=== PATIENT | male | born 1990 | race African-American/Black ===

== ENCOUNTER 2017-07-12 11:45 | Inpatient (IN) | payer MEDICAID, OTHER ==
[~2017-07-12] VITALS: Ht 172.7 cm; Wt 59.4 kg
[2017-07-12] MEDS ORDERED: PROZ10 PO (11:57)
[2017-07-12 12:28] LABS: BASOPHILS % (AUTO) 0.5 % (0.0-2.0); EOSINOPHILS % (AUTO) 1.3 % (1.0-6.0); HEMATOCRIT 42.9 % (41-53); HEMOGLOBIN 14.9 g/dL (13.5-17.5); LYMPHOCYTES # (AUTO) 2.4 K/uL (1.0-4.8); LYMPHOCYTES % (AUTO) 46.8 % (22.0-44.0); MEAN CORPUSCULAR HEMOGLOBIN 30.9 pg (26.0-34.0); MEAN CORPUSCULAR HGB CONC 34.7 G/dL (31.0-37.0); MEAN CORPUSCULAR VOLUME 89 fL (80-100); MONOCYTES # (AUTO) 0.2 K/uL (0.1-1.0); MONOCYTES % (AUTO) 4.1 % (2.0-9.0); NEUTROPHILS # (AUTO) 2.5 K/uL (1.8-7.7); NEUTROPHILS % (AUTO) 47.3 % (40.0-70.0); PLATELET COUNT (AUTO) 226 K/uL (150-450); RED BLOOD CELL COUNT(AUTO) 4.81 MIL/uL (4.50-5.90); RED CELL DISTRIBUTION WIDTH 13.4 % (11.5-14.5); WHITE BLOOD COUNT (AUTO) 5.2 K/uL (4.5-11.0)
[2017-07-12 12:40] LABS: SALICYLATE < 2.8 mg/dL (2.8-20.0)
[2017-07-12 12:41] LABS: ANION GAP 11 mmol/L (8-16); CALCIUM, TOTAL 8.5 mg/dL (8.8-10.5); CARBON DIOXIDE 27 mmol/L (22-29); CHLORIDE 107 mmol/L (98-107); CREATININE 0.82 mg/dL (0.60-1.30); GLOMERULAR FILTR. RATE CALC > 60 mL/min (>60); SODIUM SERUM 145 mmol/L (136-145); UREA NITROGEN, BLOOD 11 mg/dL (7-18)
[2017-07-12 12:52] LABS: ALANINE AMINOTRANSFERASE 26 U/L (12-78); ALBUMIN 4.1 g/dL (3.4-5.0); ASPARTATE AMINOTRANSFERASE 24 U/L (15-37); BILIRUBIN,TOTAL 0.2 mg/dL (0.1-1.0); TOTAL PROTEIN, SERUM 7.7 g/dL (6.4-8.2)
[2017-07-12] MEDS ORDERED: SODIUM CHLORIDE 0.9% 1,000 ML IV ONE (13:15)
[2017-07-12 13:33] LABS: ACETAMINOPHEN < 2 mcg/mL (10-30)
[2017-07-12] MEDS ORDERED: PROMETHAZINE HCL 25 MG TABLET PO PRN (15:00)
[2017-07-12] MEDS ORDERED: MAG HYDROX/AL HYDROX/SIMETH ES 30 ML SUSPENSION UDCUP PO PRN (15:00)
[2017-07-12] MEDS ORDERED: GuaiFENesin/D-METHORPHAN [SUGAR-FREE] 200-20MG/10 ML SYRUP UDCUP PO PRN (15:00)
[2017-07-12] MEDS ORDERED: DIAZEPAM 10 MG TABLET PO PRN (15:00)
[2017-07-12] MEDS ORDERED: LOPERAMIDE HCL 2 MG CAPSULE PO PRN (15:00)
[2017-07-12] MEDS ORDERED: TUBERCULIN, PURIFIED PROTEIN DERIVATIVE 5 TU/0.1 ML SYG ID ONE (15:00)
[2017-07-12] MEDS ORDERED: OLANZapine 5 MG RAPDIS TABLET PO PRN (15:00)
[2017-07-12] MEDS ORDERED: MAGNESIUM HYDROXIDE SUSPENSION 30 ML UDCUP PO PRN (15:00)
[2017-07-12] MEDS ORDERED: ZOLPIDEM TARTRATE 10 MG TABLET PO PRN (15:00)
[2017-07-12] MEDS ORDERED: CYANOCOBALAMIN 1,000 MCG/ML VIAL IM ONE (15:00)
[2017-07-12] MEDS ORDERED: HydrOXYzine PAMOATE 50 MG CAPSULE PO PRN (15:00)
[2017-07-12] MEDS ORDERED: ACETAMINOPHEN 325 MG TABLET PO PRN (15:00)
[2017-07-12 20:17] VITALS: BP 114/90
[2017-07-12] MEDS: MIRTAZAPINE 15 MG TABLET PO SCH (20:27)
[2017-07-12] MEDS: THIAMINE HCL 100 MG TABLET PO SCH (20:27)
[2017-07-12 20:28] VITALS: BP 114/90
[2017-07-12 21:12] VITALS: BP 108/53
[2017-07-12 22:07] VITALS: BP 111/68
[2017-07-12 23:06] VITALS: BP 120/59
[2017-07-13] VITALS (11 sets, daily range): BP systolic 92–130; BP diastolic 41–74
[2017-07-13] MEDS ORDERED: DIAZEPAM 10 MG TABLET PO PRN (07:00)
[2017-07-13 07:13] LABS: BASOPHILS % (AUTO) 0.4 % (0.0-2.0); EOSINOPHILS % (AUTO) 2.8 % (1.0-6.0); HEMATOCRIT 41.5 % (41-53); HEMOGLOBIN 14.3 g/dL (13.5-17.5); LYMPHOCYTES # (AUTO) 2.8 K/uL (1.0-4.8); LYMPHOCYTES % (AUTO) 45.6 % (22.0-44.0); MEAN CORPUSCULAR HGB CONC 34.4 G/dL (31.0-37.0); MEAN CORPUSCULAR VOLUME 90 fL (80-100); MONOCYTES # (AUTO) 0.4 K/uL (0.1-1.0); MONOCYTES % (AUTO) 6.9 % (2.0-9.0); NEUTROPHILS # (AUTO) 2.8 K/uL (1.8-7.7); NEUTROPHILS % (AUTO) 44.3 % (40.0-70.0); PLATELET COUNT (AUTO) 200 K/uL (150-450); RED BLOOD CELL COUNT(AUTO) 4.61 MIL/uL (4.50-5.90); RED CELL DISTRIBUTION WIDTH 13.4 % (11.5-14.5); WHITE BLOOD COUNT (AUTO) 6.2 K/uL (4.5-11.0)
[2017-07-13 07:19] LABS: HEMOGLOBIN A1C 5.7 % (4.5-6.2)
[2017-07-13 07:48] LABS: ALANINE AMINOTRANSFERASE 24 U/L (12-78); ALBUMIN 3.6 g/dL (3.4-5.0); ANION GAP 6 mmol/L (8-16); ASPARTATE AMINOTRANSFERASE 22 U/L (15-37); BILIRUBIN,TOTAL 0.4 mg/dL (0.1-1.0); CALCIUM, TOTAL 8.6 mg/dL (8.8-10.5); CARBON DIOXIDE 29 mmol/L (22-29); CHLORIDE 105 mmol/L (98-107); CHOL/HDL RATIO 2.6 (4.2-7.3); CREATININE 0.89 mg/dL (0.60-1.30); GLOMERULAR FILTR. RATE CALC > 60 mL/min (>60); POTASSIUM 3.8 mmol/L (3.5-5.1); SODIUM SERUM 140 mmol/L (136-145); THYROID STIMULATING HORMONE 0.47 uIU/mL (0.36-3.74); TOTAL PROTEIN, SERUM 6.9 g/dL (6.4-8.2); UREA NITROGEN, BLOOD 14 mg/dL (7-18)
[2017-07-13] MEDS: THIAMINE HCL 100 MG TABLET PO SCH ×2 (08:24→16:46)
[2017-07-13] MEDS: MULTIVITAMINS WITH MINERALS, THERAPEUTIC TABLET PO SCH (08:24)
[2017-07-13] MEDS: NALTREXONE HCL 50 MG TABLET PO SCH (08:24)
[2017-07-13] MEDS: FOLIC ACID 1 MG TABLET PO SCH (08:24)
[2017-07-13] MEDS: DIAZEPAM 10 MG TABLET PO SCH ×4 (08:24→21:00)
[2017-07-13] MEDS ORDERED: PENICILLIN G BENZATHINE LA 2,400,000 UNITS/4 ML SYRINGE IM ONE (19:00)
[2017-07-13] MEDS: MIRTAZAPINE 15 MG TABLET PO SCH (21:00)
[2017-07-14] VITALS (7 sets, daily range): BP systolic 107–125; BP diastolic 58–92
[2017-07-14] MEDS: FOLIC ACID 1 MG TABLET PO SCH (09:59)
[2017-07-14] MEDS: THIAMINE HCL 100 MG TABLET PO SCH ×2 (09:59→16:12)
[2017-07-14] MEDS: DIAZEPAM 10 MG TABLET PO SCH ×4 (09:59→20:24)
[2017-07-14] MEDS: MULTIVITAMINS WITH MINERALS, THERAPEUTIC TABLET PO SCH (09:59)
[2017-07-14] MEDS: NALTREXONE HCL 50 MG TABLET PO SCH (09:59)
[2017-07-14] MEDS: MIRTAZAPINE 15 MG TABLET PO SCH (20:24)
[2017-07-14 20:58] LABS: TREPONEMA PALLIDUM AB -TPPA Positive (Negative)
[2017-07-15 06:55] VITALS: BP 106/74
[2017-07-15] MEDS ORDERED: DIAZEPAM 5 MG TABLET PO PRN (07:00)
[2017-07-15 07:12] VITALS: BP 106/74
[2017-07-15 08:20] VITALS: BP 105/54
[2017-07-15 08:30] VITALS: BP 105/54
[2017-07-15] MEDS: DIAZEPAM 5 MG TABLET PO SCH ×4 (09:00→20:20)
[2017-07-15] MEDS: NALTREXONE HCL 50 MG TABLET PO SCH (09:02)
[2017-07-15] MEDS: FOLIC ACID 1 MG TABLET PO SCH (09:02)
[2017-07-15] MEDS: MULTIVITAMINS WITH MINERALS, THERAPEUTIC TABLET PO SCH (09:02)
[2017-07-15] MEDS: THIAMINE HCL 100 MG TABLET PO SCH ×2 (09:02→17:35)
[2017-07-15] MEDS ORDERED: LOPERAMIDE HCL 2 MG CAPSULE PO PRN (15:00)
[2017-07-15 18:25] VITALS: BP 111/64
[2017-07-15 18:26] VITALS: BP 111/64
[2017-07-15] MEDS: MIRTAZAPINE 15 MG TABLET PO SCH (20:19)
[2017-07-16 06:48] VITALS: BP 115/70
[2017-07-16 06:49] VITALS: BP 115/70
[2017-07-16] MEDS ORDERED: DIAZEPAM 5 MG TABLET PO PRN (07:00)
[2017-07-16 08:15] VITALS: BP 95/62
[2017-07-16] MEDS: THIAMINE HCL 100 MG TABLET PO SCH ×2 (08:35→15:59)
[2017-07-16] MEDS: FOLIC ACID 1 MG TABLET PO SCH (08:35)
[2017-07-16] MEDS: NALTREXONE HCL 50 MG TABLET PO SCH (08:35)
[2017-07-16] MEDS: MULTIVITAMINS WITH MINERALS, THERAPEUTIC TABLET PO SCH (08:35)
[2017-07-16 19:34] VITALS: BP 117/69
[2017-07-16 19:35] VITALS: BP 117/69
[2017-07-16] MEDS: MIRTAZAPINE 15 MG TABLET PO SCH (20:11)
[2017-07-17 06:48] VITALS: BP 96/62
[2017-07-17] MEDS: FOLIC ACID 1 MG TABLET PO SCH (09:07)
[2017-07-17] MEDS: MULTIVITAMINS WITH MINERALS, THERAPEUTIC TABLET PO SCH (09:07)
[2017-07-17] MEDS: THIAMINE HCL 100 MG TABLET PO SCH ×2 (09:07→16:16)
[2017-07-17] MEDS: NALTREXONE HCL 50 MG TABLET PO SCH (09:08)
[2017-07-17 09:30] VITALS: BP 109/52
[2017-07-17 16:25] VITALS: BP 130/85
[2017-07-17] MEDS: MIRTAZAPINE 15 MG TABLET PO SCH (20:38)
[2017-07-18 08:14] VITALS: BP 105/74
[2017-07-18] MEDS: THIAMINE HCL 100 MG TABLET PO SCH ×2 (08:55→16:46)
[2017-07-18] MEDS: NALTREXONE HCL 50 MG TABLET PO SCH (08:55)
[2017-07-18] MEDS: MULTIVITAMINS WITH MINERALS, THERAPEUTIC TABLET PO SCH (08:55)
[2017-07-18] MEDS: FOLIC ACID 1 MG TABLET PO SCH (08:56)
[2017-07-18 16:56] VITALS: BP 126/77
[2017-07-18] MEDS ORDERED: MIRTAZAPINE 15 MG TABLET PO SCH (21:00)
[2017-07-18] MEDS ORDERED: OLANZapine 5 MG TABLET PO SCH (21:00)
[2017-07-19 09:30] VITALS: BP 113/60
[2017-07-19] MEDS: MULTIVITAMINS WITH MINERALS, THERAPEUTIC TABLET PO SCH (09:39)
[2017-07-19] MEDS: NALTREXONE HCL 50 MG TABLET PO SCH (09:39)
[2017-07-19] MEDS: FOLIC ACID 1 MG TABLET PO SCH (09:39)
[2017-07-19] MEDS: THIAMINE HCL 100 MG TABLET PO SCH ×2 (09:39→16:52)
[2017-07-19] MEDS ORDERED: NALT50TA PO (14:32)
[2017-07-19] MEDS ORDERED: MIRT30 PO (14:32)
[2017-07-19] MEDS ORDERED: OLAN10TA20 PO (14:32)
[2017-07-19] MEDS ORDERED: OLANZapine 10 MG TABLET PO SCH (21:00)
[2017-07-19] MEDS ORDERED: MIRTAZAPINE 30 MG TABLET PO SCH (21:00)
== END 2017-07-19 17:20 | disposition home or self-care (01) | DRG 750 ==
LOC: EMS 11:46 → 3EC 19:38 → 3EI 07-18 17:19
PROVIDERS: ADMIT Psychiatry & Neurology Psychiatry; ATTEND Psychiatry & Neurology Psychiatry
DX: F25.0 Schizoaffective disorder, bipolar type (principal); R45.851 Suicidal ideations; Z59.0 Homelessness; F41.9 Anxiety disorder, unspecified; F32.9 Major depressive disorder, single episode, unspecified; F17.210 Nicotine dependence, cigarettes, uncomplicated; F14.90 Cocaine use, unspecified, uncomplicated; Z91.030 Bee allergy status; Z79.899 Other long term (current) drug therapy; Z91.5 Personal history of self-harm; Z65.3 Problems related to other legal circumstances
CPT/HCPCS: 83036; 84439; 84443; 86592; 86593; 86780; 96360; 96372; 99285; G0480; G0481; J0561; J3420; J7030

== ENCOUNTER 2018-04-07 16:45 | Emergency (ER) | payer MEDICAID, OTHER ==
[~2018-04-07] VITALS: Ht 170.2 cm; Wt 59.1 kg
[~2018-04-07 16:45] MED LIST: MIRT30 PO; NALT50TA PO; OLAN10TA20 PO
[2018-04-07 17:57] LABS: BASOPHILS % (AUTO) 0.7 % (0.0-2.0); EOSINOPHILS % (AUTO) 0.5 % (1.0-6.0); HEMATOCRIT 45.1 % (41-53); HEMOGLOBIN 15.2 g/dL (13.5-17.5); LYMPHOCYTES # (AUTO) 1.7 K/uL (1.0-4.8); LYMPHOCYTES % (AUTO) 18.5 % (22.0-44.0); MEAN CORPUSCULAR HEMOGLOBIN 29.9 pg (26.0-34.0); MEAN CORPUSCULAR HGB CONC 33.6 G/dL (31.0-37.0); MEAN CORPUSCULAR VOLUME 89 fL (80-100); MONOCYTES # (AUTO) 0.4 K/uL (0.1-1.0); MONOCYTES % (AUTO) 4.7 % (2.0-9.0); NEUTROPHILS % (AUTO) 75.6 % (40.0-70.0); PLATELET COUNT (AUTO) 236 K/uL (150-450); RED BLOOD CELL COUNT(AUTO) 5.08 MIL/uL (4.50-5.90); RED CELL DISTRIBUTION WIDTH 12.9 % (11.5-14.5)
[2018-04-07 18:09] LABS: ANION GAP 12 mmol/L (8-16); CALCIUM, TOTAL 8.7 mg/dL (8.8-10.5); CARBON DIOXIDE 25 mmol/L (22-29); CHLORIDE 101 mmol/L (98-107); CREATININE 0.76 mg/dL (0.60-1.30); GLOMERULAR FILTR. RATE CALC > 60 mL/min (>60); GLUCOSE,RANDOM 69 mg/dL (70-110); POTASSIUM 3.5 mmol/L (3.5-5.1); SODIUM SERUM 138 mmol/L (136-145); UREA NITROGEN, BLOOD 12 mg/dL (7-18)
[2018-04-07 18:15] LABS: ALANINE AMINOTRANSFERASE 50 U/L (12-78); ALBUMIN 4.6 g/dL (3.4-5.0); ALKALINE PHOSPHATASE 83 U/L (46-116); ASPARTATE AMINOTRANSFERASE 62 U/L (15-37); BILIRUBIN,TOTAL 0.6 mg/dL (0.1-1.0)
[2018-04-07 18:17] LABS: ACETAMINOPHEN < 2 mcg/mL (10-30)
[2018-04-07 18:58] LABS: AMPHET/METH SCREEN,URINE NEGATIVE (NEGATIVE); BARBITURATE SCREEN, URINE NEGATIVE (NEGATIVE); BENZODIAZEPINES SCREEN,URINE NEGATIVE (NEGATIVE); CANNABINOID SCREEN,URINE POSITIVE (NEGATIVE); COCAINE SCREEN,URINE NEGATIVE (NEGATIVE); METHADONE SCREEN, URINE NEGATIVE (NEGATIVE); OPIATE SCREEN,URINE NEGATIVE (NEGATIVE)
[2018-04-07 18:59] LABS: PHENCYCLIDINE SCREEN,URINE NEGATIVE (NEGATIVE)
[2018-04-07 22:38] VITALS: BP 112/72
== END 2018-04-07 22:40 | disposition home or self-care (01) ==
LOC: EMS 16:47
DX: F10.129 Alcohol abuse with intoxication, unspecified (principal); F14.90 Cocaine use, unspecified, uncomplicated; F12.90 Cannabis use, unspecified, uncomplicated; F17.210 Nicotine dependence, cigarettes, uncomplicated; F31.9 Bipolar disorder, unspecified; Z91.030 Bee allergy status; Z79.899 Other long term (current) drug therapy
CPT/HCPCS: 36415; 80053; 80307; 85025; 99284; G0480 ×2; G0481

== ENCOUNTER 2018-05-10 10:32 | Inpatient (IN) | payer MEDICAID, OTHER ==
[~2018-05-10] VITALS: Ht 170.2 cm; Wt 54.1 kg
[2018-05-10 11:15] LABS: BASOPHILS % (AUTO) 0.4 % (0.0-2.0); EOSINOPHILS % (AUTO) 0.3 % (1.0-6.0); HEMATOCRIT 43.9 % (41-53); HEMOGLOBIN 14.8 g/dL (13.5-17.5); LYMPHOCYTES # (AUTO) 1.4 K/uL (1.0-4.8); LYMPHOCYTES % (AUTO) 13.6 % (22.0-44.0); MEAN CORPUSCULAR HEMOGLOBIN 30.9 pg (26.0-34.0); MEAN CORPUSCULAR HGB CONC 33.8 G/dL (31.0-37.0); MEAN CORPUSCULAR VOLUME 92 fL (80-100); MONOCYTES # (AUTO) 0.4 K/uL (0.1-1.0); MONOCYTES % (AUTO) 4.2 % (2.0-9.0); NEUTROPHILS # (AUTO) 8.6 K/uL (1.8-7.7); NEUTROPHILS % (AUTO) 81.5 % (40.0-70.0); PLATELET COUNT (AUTO) 252 K/uL (150-450); RED CELL DISTRIBUTION WIDTH 14.5 % (11.5-14.5)
[2018-05-10 11:26] LABS: ANION GAP 14 mmol/L (8-16); CALCIUM, TOTAL 8.4 mg/dL (8.8-10.5); CARBON DIOXIDE 21 mmol/L (22-29); CHLORIDE 104 mmol/L (98-107); CREATININE 0.98 mg/dL (0.60-1.30); GLOMERULAR FILTR. RATE CALC > 60 mL/min (>60); GLUCOSE,RANDOM 147 mg/dL (70-110); POTASSIUM 3.6 mmol/L (3.5-5.1); SODIUM SERUM 139 mmol/L (136-145); UREA NITROGEN, BLOOD 15 mg/dL (7-18)
[2018-05-10 11:33] LABS: ALANINE AMINOTRANSFERASE 51 U/L (12-78); ALBUMIN 3.7 g/dL (3.4-5.0); ALKALINE PHOSPHATASE 99 U/L (46-116); ASPARTATE AMINOTRANSFERASE 72 U/L (15-37); BILIRUBIN,TOTAL 0.2 mg/dL (0.1-1.0); TOTAL PROTEIN, SERUM 7.8 g/dL (6.4-8.2)
[2018-05-10] MEDS ORDERED: ZOLPIDEM TARTRATE 10 MG TABLET PO PRN (13:30)
[2018-05-10] MEDS ORDERED: HALOPERIDOL 5 MG TABLET PO PRN (13:30)
[2018-05-10] MEDS ORDERED: LORazepam 2 MG TABLET PO PRN ×2 (13:30→17:30)
[2018-05-10 17:45] VITALS: BP 110/64
[2018-05-10 18:00] VITALS: BP 115/68
[2018-05-10 19:00] VITALS: BP 120/70
[2018-05-10 20:00] VITALS: BP 119/55
[2018-05-10] MEDS: MIRTAZAPINE 15 MG TABLET PO SCH (20:32)
[2018-05-10 21:00] VITALS: BP 118/58
[2018-05-11] VITALS (8 sets, daily range): BP systolic 108–122; BP diastolic 54–69
[2018-05-11] MEDS ORDERED: LORazepam 2 MG TABLET PO PRN (07:00)
[2018-05-11 07:20] LABS: CHOL/HDL RATIO 1.9 (4.2-7.3)
[2018-05-11] MEDS: GABAPENTIN 100 MG CAPSULE PO SCH ×2 (10:00→16:21)
[2018-05-11] MEDS: LORazepam 2 MG TABLET PO SCH ×4 (10:01→21:11)
[2018-05-11] MEDS: MIRTAZAPINE 15 MG TABLET PO SCH (20:14)
[2018-05-12 01:00] VITALS: BP 101/66
[2018-05-12 08:12] VITALS: BP 119/73
[2018-05-12 08:13] VITALS: BP 119/73
[2018-05-12] MEDS: GABAPENTIN 100 MG CAPSULE PO SCH ×2 (08:49→16:44)
[2018-05-12] MEDS: LORazepam 2 MG TABLET PO SCH ×4 (08:49→20:44)
[2018-05-12 12:53] VITALS: BP 111/67
[2018-05-12 18:00] VITALS: BP 118/68
[2018-05-12 20:26] VITALS: BP 118/68
[2018-05-12] MEDS: MIRTAZAPINE 15 MG TABLET PO SCH (20:44)
[2018-05-13 00:37] VITALS: BP 111/66
[2018-05-13] MEDS ORDERED: LORazepam 1 MG TABLET PO PRN (07:00)
[2018-05-13 08:05] VITALS: BP 108/53
[2018-05-13] MEDS: LORazepam 1 MG TABLET PO SCH ×4 (09:27→20:37)
[2018-05-13] MEDS: GABAPENTIN 100 MG CAPSULE PO SCH ×2 (09:27→17:07)
[2018-05-13] MEDS: MIRTAZAPINE 15 MG TABLET PO SCH (20:37)
[2018-05-13 22:28] VITALS: BP 116/71
[2018-05-13 22:29] VITALS: BP 116/71
[2018-05-14 06:47] VITALS: BP 101/65
[2018-05-14] MEDS ORDERED: LORazepam 1 MG TABLET PO PRN (07:00)
[2018-05-14 09:27] VITALS: BP 100/57
[2018-05-14] MEDS: GABAPENTIN 100 MG CAPSULE PO SCH (10:04)
[2018-05-14] MEDS ORDERED: GABA-529 PO (10:23)
[2018-05-14] MEDS ORDERED: MIRT15 PO (10:24)
== END 2018-05-14 15:03 | disposition home or self-care (01) | DRG 751 ==
LOC: EMS 10:33 → 3EI 16:20
PROVIDERS: ADMIT Psychiatry & Neurology Psychiatry; ATTEND Psychiatry & Neurology Psychiatry
DX: F33.2 Major depressive disorder, recurrent severe without psychotic features (principal); R45.851 Suicidal ideations; Z91.19 Patient's noncompliance with other medical treatment and regimen; F10.10 Alcohol abuse, uncomplicated; F15.90 Other stimulant use, unspecified, uncomplicated; F17.210 Nicotine dependence, cigarettes, uncomplicated; F41.9 Anxiety disorder, unspecified; G47.00 Insomnia, unspecified; H54.7 Unspecified visual loss; F12.90 Cannabis use, unspecified, uncomplicated; R74.0 Nonspecific elevation of levels of transaminase and lactic acid dehydrogenase [LDH]; R73.9 Hyperglycemia, unspecified; Z79.899 Other long term (current) drug therapy; Z79.4 Long term (current) use of insulin; Z91.5 Personal history of self-harm
CPT/HCPCS: 99285; 99406; G0480

== ENCOUNTER 2022-05-22 08:03 | Emergency (ER) | payer MEDICAID ==
[~2022-05-22] VITALS: Ht 170.2 cm; Wt 54.1 kg
[~2022-05-22 08:03] MED LIST changes: +GABA-1216 PO; +MIRT-89 PO; -MIRT30 PO; -NALT50TA PO; -OLAN10TA20 PO
[2022-05-22 08:31] LABS: BASOPHILS % (AUTO) 0.6 % (0.0-2.0); EOSINOPHILS % (AUTO) 1.7 % (1.0-6.0); HEMATOCRIT 40.3 % (41-53); HEMOGLOBIN 13.3 g/dL (13.5-17.5); LYMPHOCYTES # (AUTO) 2.2 K/uL (1.0-4.8); MEAN CORPUSCULAR HGB CONC 33.1 G/dL (31.0-37.0); MEAN CORPUSCULAR VOLUME 87 fL (80-100); MONOCYTES # (AUTO) 0.5 K/uL (0.1-1.0); MONOCYTES % (AUTO) 6.3 % (2.0-9.0); NEUTROPHILS % (AUTO) 63.4 % (40.0-70.0); PLATELET COUNT (AUTO) 296 K/uL (150-450); RED CELL DISTRIBUTION WIDTH 13.4 % (11.5-14.5)
[2022-05-22 08:55] LABS: ANION GAP 7 mmol/L (8-16); CALCIUM, TOTAL 9.7 mg/dL (8.8-10.5); CARBON DIOXIDE 29 mmol/L (22-29); CHLORIDE 103 mmol/L (98-107); CREATININE 0.98 mg/dL (0.60-1.30); GLUCOSE,RANDOM 81 mg/dL (70-110); POTASSIUM 3.8 mmol/L (3.5-5.1); SODIUM SERUM 139 mmol/L (136-145); UREA NITROGEN, BLOOD 20 mg/dL (7-18)
[2022-05-22 08:57] LABS: GLOMERULAR FILTR. RATE CALC > 60 mL/min (>60)
[2022-05-22 09:00] LABS: ALANINE AMINOTRANSFERASE 24 U/L (12-78); ALBUMIN 4.3 g/dL (3.4-5.0); ALKALINE PHOSPHATASE 73 U/L (46-116); ASPARTATE AMINOTRANSFERASE 28 U/L (15-37); BILIRUBIN,TOTAL 0.5 mg/dL (0.1-1.0); TOTAL PROTEIN, SERUM 8.5 g/dL (6.4-8.2)
[2022-05-22 12:11] LABS: COVID AG,FIA SOURCE NASOPHARYNGEAL
[2022-05-22 18:33] VITALS: BP 111/68
== END 2022-05-22 21:42 | disposition home or self-care (01) ==
LOC: EMS 08:06
DX: F32.9 Major depressive disorder, single episode, unspecified (principal); F17.210 Nicotine dependence, cigarettes, uncomplicated; R45.851 Suicidal ideations; F14.90 Cocaine use, unspecified, uncomplicated; F12.90 Cannabis use, unspecified, uncomplicated; F15.90 Other stimulant use, unspecified, uncomplicated; Z72.89 Other problems related to lifestyle; Z91.030 Bee allergy status; Z20.822 Contact with and (suspected) exposure to COVID-19
CPT/HCPCS: 99285; 87426; 80053; 85025; 36415; G0480; 99283

== ENCOUNTER 2022-08-18 21:39 | Inpatient (IN) | payer MEDICAID ==
[~2022-08-18] VITALS: Ht 175.3 cm; Wt 58.9 kg
[2022-08-18 22:43] LABS: BASOPHILS % (AUTO) 0.6 % (0.0-2.0); EOSINOPHILS % (AUTO) 2.8 % (1.0-6.0); HEMATOCRIT 41.4 % (41-53); HEMOGLOBIN 13.5 g/dL (13.5-17.5); LYMPHOCYTES # (AUTO) 3.3 K/uL (1.0-4.8); LYMPHOCYTES % (AUTO) 40.6 % (22.0-44.0); MEAN CORPUSCULAR HEMOGLOBIN 29.3 pg (26.0-34.0); MEAN CORPUSCULAR HGB CONC 32.6 G/dL (31.0-37.0); MEAN CORPUSCULAR VOLUME 90 fL (80-100); MONOCYTES # (AUTO) 0.4 K/uL (0.1-1.0); NEUTROPHILS # (AUTO) 4.1 K/uL (1.8-7.7); PLATELET COUNT (AUTO) 381 K/uL (150-450); RED BLOOD CELL COUNT(AUTO) 4.61 MIL/uL (4.50-5.90); RED CELL DISTRIBUTION WIDTH 12.9 % (11.5-14.5)
[2022-08-18 22:53] LABS: ANION GAP 6 mmol/L (8-16); CALCIUM, TOTAL 9.7 mg/dL (8.8-10.5); CARBON DIOXIDE 31 mmol/L (22-29); CHLORIDE 99 mmol/L (98-107); CREATININE 0.86 mg/dL (0.60-1.30); GLUCOSE,RANDOM 95 mg/dL (70-110); POTASSIUM 3.8 mmol/L (3.5-5.1); SODIUM SERUM 136 mmol/L (136-145); UREA NITROGEN, BLOOD 14 mg/dL (7-18)
[2022-08-18 22:56] LABS: GLOMERULAR FILTR. RATE CALC > 60 mL/min (>60)
[2022-08-18 23:11] LABS: ALANINE AMINOTRANSFERASE 26 U/L (12-78); ALBUMIN 4.3 g/dL (3.4-5.0); ALKALINE PHOSPHATASE 78 U/L (46-116); ASPARTATE AMINOTRANSFERASE 27 U/L (15-37); BILIRUBIN,TOTAL 0.2 mg/dL (0.1-1.0); LIPASE 157 U/L (73-393); TOTAL PROTEIN, SERUM 8.3 g/dL (6.4-8.2)
[2022-08-18] MEDS ORDERED: LORazepam 2 MG TABLET PO ONE (23:15)
[2022-08-18] MEDS ORDERED: DiphenhydrAMINE HCL 25 MG CAPSULE PO ONE (23:15)
[2022-08-18] MEDS ORDERED: ZOLPIDEM TARTRATE 10 MG TABLET PO PRN (23:30)
[2022-08-18] MEDS ORDERED: LORazepam 2 MG TABLET PO PRN (23:30)
[2022-08-18] MEDS ORDERED: HALOPERIDOL 5 MG TABLET PO PRN (23:30)
[2022-08-19 00:50] LABS: COVID AG,FIA SOURCE NASAL SWAB
[2022-08-19] MEDS ORDERED: MAG HYDROX/AL HYDROX/SIMETH ES 30 ML SUSPENSION UDCUP PO PRN (09:30)
[2022-08-19] MEDS ORDERED: ACETAMINOPHEN 325 MG TABLET PO PRN (09:30)
[2022-08-19] MEDS ORDERED: PETROLATUM,WHITE 28 GM JELLY TP PRN (09:30)
[2022-08-19] MEDS ORDERED: LOPERAMIDE HCL 2 MG CAPSULE PO PRN (09:30)
[2022-08-19] MEDS ORDERED: OMEPRAZOLE 20 MG CAPSULE PO PRN (09:30)
[2022-08-19] MEDS ORDERED: ALBUTEROL SULFATE HFA 90 MCG/PUFF 8 GM INHALER IH PRN (09:30)
[2022-08-19] MEDS ORDERED: MAGNESIUM HYDROXIDE SUSPENSION 30 ML UDCUP PO PRN (09:30)
[2022-08-19] MEDS ORDERED: CloNIDine HCL 0.1 MG TABLET PO PRN (09:30)
[2022-08-19] MEDS ORDERED: ONDANSETRON HCL 4 MG TABLET PO PRN (09:30)
[2022-08-19] MEDS ORDERED: DOCUSATE SODIUM 100 MG CAPSULE PO PRN (09:30)
[2022-08-19] MEDS ORDERED: IBUPROFEN 600 MG TABLET PO PRN (09:30)
[2022-08-19] MEDS ORDERED: BACITRACIN 28 GM OINTMENT TP PRN (09:30)
[2022-08-19] MEDS ORDERED: BENZOCAINE/MENTHOL LOZENGE PO PRN (09:30)
[2022-08-19 10:49] LABS: APPEARANCE,URINE CLEAR (CLEAR); BILIRUBIN,URINE NEGATIVE (NEGATIVE); GLUCOSE, URINE (UA) NEGATIVE (NEGATIVE); KETONES,URINE NEGATIVE (NEGATIVE); LEUKOCYTE ESTERASE ,URINE NEGATIVE (NEGATIVE); NITRATE,URINE NEGATIVE (NEGATIVE); OCCULT BLOOD,URINE NEGATIVE (NEGATIVE); PROTEIN,URINE NEGATIVE (NEGATIVE); UROBILINOGEN,URINE <=1.0 mg/dL (<=1.0)
[2022-08-19 11:02] LABS: BACTERIA,URINE None Seen /HPF (None Seen); RBC,URINE None Seen /HPF (0-2); WBC,URINE None Seen /HPF (0-5)
[2022-08-19 11:56] LABS: AMPHET/METH SCREEN,URINE POSITIVE (NEGATIVE); BARBITURATE SCREEN, URINE NEGATIVE (NEGATIVE); BENZODIAZEPINES SCREEN,URINE NEGATIVE (NEGATIVE); CANNABINOID SCREEN,URINE POSITIVE (NEGATIVE); COCAINE SCREEN,URINE NEGATIVE (NEGATIVE); METHADONE SCREEN, URINE NEGATIVE (NEGATIVE); OPIATE SCREEN,URINE NEGATIVE (NEGATIVE)
[2022-08-19 11:57] LABS: PHENCYCLIDINE SCREEN,URINE NEGATIVE (NEGATIVE)
[2022-08-19] MEDS ORDERED: INFLUENZA VIRUS VACCINE QVS 2022-23 (6MO+)/PF 60 MCG/0.5 ML SYRINGE IM. ONE (12:45)
[2022-08-19 13:06] VITALS: BP 102/58
[2022-08-19 16:07] VITALS: BP 118/58
[2022-08-19 20:26] VITALS: BP 115/68
[2022-08-20 08:47] VITALS: BP 98/62
[2022-08-20] MEDS: BuPROPion HCL XL 150 MG ER TABLET PO SCH (10:06)
[2022-08-20 20:03] VITALS: BP 108/60
[2022-08-21 08:43] VITALS: BP 112/63
[2022-08-21] MEDS: BuPROPion HCL XL 150 MG ER TABLET PO SCH (08:52)
[2022-08-21] MEDS ORDERED: BUPR-50 PO (19:36)
[2022-08-21 20:17] VITALS: BP 101/65
[2022-08-22 05:00] VITALS: BP 113/68
[2022-08-22] MEDS ORDERED: BUPR-49 PO (07:35)
== END 2022-08-22 07:48 | disposition home or self-care (01) | DRG 751 ==
LOC: EMS 21:39 → B2S 08-19 08:39
PROVIDERS: ADMIT Psychiatry & Neurology Child & Adolescent Psychiatry; ATTEND Psychiatry & Neurology Child & Adolescent Psychiatry
DX: F33.2 Major depressive disorder, recurrent severe without psychotic features (principal); F10.10 Alcohol abuse, uncomplicated; F12.10 Cannabis abuse, uncomplicated; F15.20 Other stimulant dependence, uncomplicated; F41.9 Anxiety disorder, unspecified; G47.00 Insomnia, unspecified; K59.00 Constipation, unspecified; Z20.822 Contact with and (suspected) exposure to COVID-19; Z79.899 Other long term (current) drug therapy; Z87.891 Personal history of nicotine dependence
CPT/HCPCS: 80053; 80307; 81001; 83690; 85025; 90686; 99285; G0480